=== PATIENT | male | born 1985 | race Caucasian/White ===

== ENCOUNTER 2017-03-02 09:14 | Emergency (ER) | payer MEDICAID ==
[~2017-03-02] VITALS: Ht 167.6 cm; Wt 73.0 kg
[2017-03-02 09:21] VITALS: Ht 167.6 cm; Wt 73.0 kg
[2017-03-02] MEDS ORDERED: HYDROCODONE/APAP (5/325) TAB PO ONE (10:30)
[2017-03-02 10:59] LABS: ADD UMIC YES; UR AMORPHOUS CRYSTAL MODERATE /HPF (NONE SEEN); UR ASCORBIC ACID NEGATIVE (NEGATIVE); UR BILIRUBIN (Dip) NEGATIVE (NEGATIVE); UR BLOOD (Dip) NEGATIVE (NEGATIVE); UR CLARITY CLOUDY (CLEAR); UR COLOR YELLOW (YELLOW); UR GLUCOSE (Dip) NEGATIVE (NEGATIVE); UR KETONES (Dip) NEGATIVE (NEGATIVE); UR LEUKOCYTE ESTERASE (Dip) NEGATIVE Leu/ul (NEGATIVE); UR NITRITE (Dip) NEGATIVE (NEGATIVE); UR RBC 12 /HPF (0-5); UR SPECIFIC GRAVITY (Dip) 1.017 (1.003-1.030); UR TOTAL PROTEIN (Dip) NEGATIVE (NEGATIVE); UR UROBILINOGEN (Dip) NEGATIVE (NEGATIVE)
[2017-03-02] MEDS ORDERED: NAPR-260 PO (11:57)
[2017-03-02] MEDS ORDERED: CYCL-319 PO (11:57)
[2017-03-02] MEDS ORDERED: HYDR-906 PO (11:59)
--- NOTE | 2017-03-02 12:05 | ERD ---
ER Documentation Chief Complaint Date/Time DATE: 03/02/17 TIME: 12:00 Chief Complaint back pain and dysuria x 3 weeks HPI This is a 31-year-old male who presents the emergency department today complaining of left-sided back pain for the past 3 weeks and worse last night. He has not taken any medication for the pain. Denies any hematuria, dysuria, loss of bowel or bladder control, fevers, vomiting, abdominal pain. ROS All systems reviewed and are negative except as per history of present illness. Medications Home Meds Active Scripts Hydrocodone/Acetaminophen (Blue River 5-325 Tablet) 1 Each Tablet, 1 TAB PO Q6H Y for PAIN, #7 TAB Prov:BANDAR ARGUETA PA-C 03/02/17 Cyclobenzaprine Hcl* (Cyclobenzaprine Hcl*) 10 Mg Tablet, 10 MG PO QHS, #7 TAB Prov:BANDAR ARGUETA PA-C 03/02/17 Naproxen* (Naprosyn*) 500 Mg Tablet, 500 MG PO BID Y for PAIN AND/OR INFLAMMATION, #30 TAB Prov:BANDAR ARGUETA PA-C 03/02/17 Allergies Allergies: Coded Allergies: No Known Allergy (Unverified , 03/02/17) PMhx/Soc Medical and Surgical Hx: pt denies Medical Hx, pt denies Surgical Hx Hx Alcohol Use: No Hx Substance Use: No Hx Tobacco Use: No Smoking Status: Never smoker Physical Exam Vitals Vital Signs Date Time Temp Pulse Resp B/P Pulse Ox O2 Delivery O2 Flow Rate FiO2 03/02/17 09:21 97.5 67 18 134/84 98 Physical Exam Const: NAD Head: Atraumatic Eyes: Normal Conjunctiva ENT: Normal External Ears, Nose and Mouth. Neck: Full range of motion..~ No meningismus. Resp: Clear to auscultation bilaterally Cardio: Regular rate and rhythm, no murmurs Abd: Soft, non tender, non distended. Normal bowel sounds Skin: No petechiae or rashes Back: No midline tenderness, left sided flank pain. No CVA tenderness Ext: No cyanosis, or edema Neur: Awake and alert Psych: Normal Mood and Affect Results 24 hrs Laboratory Tests Test 03/02/17 10:24 Urine Color YELLOW Urine Clarity CLOUDY Urine pH 8.0 Urine Specific [place] 1.017 Urine Ketones NEGATIVEmg/dL Urine Nitrite NEGATIVEmg/dL Urine Bilirubin NEGATIVEmg/dL Urine Urobilinogen NEGATIVEmg/dL Urine Leukocyte Esterase NEGATIVELeu/ul Urine Microscopic RBC 12/HPF Urine Microscopic WBC 4/HPF Urine Amorphous Crystals MODERATE/HPF Urine Hemoglobin NEGATIVEmg/dL Urine Glucose NEGATIVEmg/dL Urine Total Protein NEGATIVEmg/dl Current Medications Medications (Trade) Dose Ordered Sig/[place] Route PRN Reason Start Time Stop Time Status Last Admin Dose Admin Acetaminophen/ Hydrocodone Bitart (Blue River (5/325)) 1 tab ONCE ONCE PO 03/02/17 10:30 03/02/17 10:31 DC 03/02/17 10:24 Procedures/MDM This is a 31-year-old male who presents the emergency department today complaining of left-sided back pain for the past 3 weeks. Given this I did obtain a UA. UA shows negative leukocyte esterase. Negative nitrites. There is only 12 microscopic red blood cells. There are moderate amount of amorphus crystals. Patient is afebrile and otherwise well-appearing. He has no CVA tenderness. Has no nausea vomiting no abdominal pain I do not feel that he requires further workup. He may have evidence of kidney stones at this time however I have low suspicion for pyelonephritis or septic stone. . Patient is in no acute distress and he is sitting in the waiting room comfortably. Other Differentials to consider our musculoskeletal strain versus sprain. Has no midline tenderness loss of bowel or bladder control and I do not feel he requires x -rays at this time. I have low suspicion for cauda equina, abscess, acute fracture or dislocation Patient was given Blue River and pain improved. He was given a prescription for short course of Blue River, Naprosyn, Flexeril for home At this time the patient is stable for discharge and outpatient management. Patient should follow up with their PCP in the next 1-2 days. They may return to the emergency department sooner for any persistent or worsening of symptoms. Patient understood and agreed with the plan. Departure Diagnosis: Primary Impression: Back pain Back pain location: low back pain Chronicity: acute Back pain laterality: left Sciatica presence: without sciatica Qualified Code: M54.5 - Acute left- sided low back pain without sciatica Condition: Fair Patient Instructions: Back Pain (Acute Or Chronic), Hematuria [facility] Usted se hernández hecho un examen mdico de control que le indica que no est en tonya condicin que requiera tratamiento urgente en el Departamento de Emergencia. Un estudio ms profundo y el tratamiento de lopez condicin pueden esperar sin ningn riesgo hasta que usted sea atendida/o en el consultorio de lopez mdico o tonya cl harpreet. Es responsabilidad suya arreglar tonya grant para el seguimiento del reuben. MANEJO DE CONDICIONES NO URGENTES EN EL FUTURO 1) Si usted tiene un mdico de atencin primaria: Usted debera llamar a lopez mdico de atencin primaria antes de venir al departamento de emergencia. Despus de las horas de consultorio, lopez doctor o lopez asociado/a est disponible por telfono. El mdico o enfermero de faraz en el servicio telefnico puede asesorarle por manoj medio para atender el problema, o reuben contrario se puede programar tonya grant. 2) Si usted no tiene un mdico de atencin primaria: Llame al mdico o clnica de referencia que aparece abajo ramo las horas de consultorio para hacer tonya grant para que le vean. CLINICAS: [facility] [phone] [facility] [address] [facility] [phone] [facility] [phone] [facility]. [facility] [phone] [facility] [place] [id number] [phone] [facility]. [phone] [address] Additional Instructions: Llame al doctor MAANA y carmel tonya GRANT PARA DENTRO DE 1-2 LOWERY.Dgale a la secretaria que nosotros le instruimos hacer esta grant.Avise o llame si lopez condicin se empeora antes de la grant. Regresa aqui si peor o no mejor. Take Blue River for severe pain otherwise take Naprosyn or Tylenol or Motrin for pain. Apply ice and heat intermittently for pain. Take Flexeril for muscle spasms. Take only at night and do not drive while taking this medication BANDAR ARGUETA PA-C Mar 02, 2017 12:05
== END 2017-03-02 12:50 | disposition home or self-care (01) ==
LOC: FTE 09:14 → EDSEX 09:14 → FTE 12:50
DX: M54.5 Low back pain (principal)
CPT/HCPCS: 81001; Z7502; Z7610; 99284